=== PATIENT | female | born 1990 | race Caucasian/White ===

== ENCOUNTER → 2017-10-22 | Outpatient (CLI) | payer OTHER ==
--- NOTE | 2017-10-22 20:08 | REP ---
Obstetric sonography: Multiple gestation. History: Supervision of , for anatomy. Findings: Scanning through the gravid uterus demonstrates a viable twin intrauterine gestation, diamniotic dichorionic. Placenta for twin A is left lateral and posterior, grade 0. Placenta for B is grade 0 and posterior. There is a complete placenta previa without evidence of abruption. Closed cervical length is 3.8 cm measured transvaginally. There has been concordant growth of each twin. Amniotic fluid is subjectively normal. Twin A is cephalic in lie along maternal left. Twin B appears to be breech along the maternal right. No extrauterine abnormalities observed. No anomaly is seen. The following anatomic structures are identified in twin A and felt to be unremarkable: cranium, choroid plexus, cavum, cerebellum and posterior fossa, lungs, four-chamber heart with left and right ventricular outflow tract views, diaphragm, left-sided stomach, abdominal wall cord insertion, three-vessel umbilical cord, kidneys and bladder, spine, upper and lower extremities. face is less than optimally seen for twin A. For twin B, the following anatomic structures are identified and felt to be unremarkable: cranium, choroid plexus, cavum, cerebellum and posterior fossa, lungs, four-chamber heart with left ventricular outflow tract view, diaphragm, left-sided stomach, abdominal wall cord insertion, three-vessel umbilical cord, kidneys and bladder, spine, upper extremities. The lower extremities, right ventricular outflow tract, and face and profile are less than optimally seen in fetus B due to position. Biometry chart fetus A: BPD 3.7 cm = 17 weeks 3 days HC 14.3 cm = 17 weeks 4 days AC 12.0 cm = 17 weeks 5 days FL 2.2 cm = 16 weeks 5 days HL 2.2 cm = 16 weeks 4 days HC/AC ratio normal 1.2. Cephalic index normal 0.71. Estimated weight 186 grams, 0 pounds 6 ounces, 67th percentile. heart rate 153 beats per minute. Biometry chart fetus B: BPD 3.7 cm = 17 weeks 1 day HC 13.8 cm = 17 weeks 1 day AC 11.5 cm = 17 weeks 2 days FL 2.3 cm = 16 weeks 5 days Humeral length 2.3 cm = 16 weeks 6 days HC/AC ratio normal 1.2. Cephalic index normal 0.73. Estimated weight 178 grams, 0 pounds 6 ounces, 59th percentile. heart rate 160 beats per minute. Impression: Viable twin intrauterine gestation at 16 weeks 3 days by prior sonography, VETO by prior sonography April 05, 2018. Concordant and appropriate interval growth. anatomic survey somewhat less than complete as above. Complete placenta previa. Signed by Vic Shelley MD 10/23/2017 03:56 P
== END ==
LOC: M RAD 17:49
PROVIDERS: ATTEND Advanced Practice Midwife
DX: Z36.2 Encounter for other antenatal screening follow-up (principal)

== ENCOUNTER → 2018-01-07 | Outpatient (CLI) | payer OTHER | LOC: M RAD 14:56 | DX: O30.043 Twin pregnancy, dichorionic/diamniotic, third trimester (principal); Z3A.27 27 weeks gestation of pregnancy ==

== ENCOUNTER 2018-02-28 10:54 | Outpatient (CLI) | payer OTHER | END 2018-02-28 12:56 | disposition home or self-care (01) | LOC: M LDO 10:54 | DX: O34.63 Maternal care for abnormality of vagina, third trimester (principal); O30.043 Twin pregnancy, dichorionic/diamniotic, third trimester; Z3A.35 35 weeks gestation of pregnancy | CPT/HCPCS: 59025 ==